=== PATIENT | female | born 2000 | race Caucasian/White ===

== ENCOUNTER 2022-07-10 19:21 | Emergency (ER) | payer OTHER, SELFPAY ==
[2022-07-10 19:32] VITALS: BP 125/94; PULSE 72; RESP 16; TEMP 36.7; O2SAT 100
[2022-07-10 19:38] VITALS: BP 125/94; PULSE 72; RESP 16; TEMP 36.7; O2SAT 100
--- NOTE | 2022-07-10 19:39 | ED.GENADULT ---
HPI - General Adult General Chief complaint: Ear Stated complaint: nerve damage in face Time Seen by Provider: 07/10/22 19:25 Source: patient, RN notes reviewed and old records reviewed Mode of arrival: ambulatory Limitations: no limitations History of Present Illness HPI narrative: 22 year old female accompanied by significant other presents to express care with complaints of some drooping of the left side of her mouth and left eye does not want to blink well. patient reports that she has some discomfort under her left ear at her jawline also. Patient denies any difficulty swallowing, patient states history of fevers sores with patient reporting that she has small suspected lesion at lower left lip. Patient reports that she had to take her contacts out and she has been using lubricating eye drops. Patient also voices some headache discomfort MD complaint: facial drooping left side of face Onset (ago): day(s) (1) Location: face Severity scale (1-10): 4 Treatments prior to arrival: other ( lubricating eyedrops) Related Data Home Medications Medication Instructions Recorded Confirmed levothyroxine 25 mcg tablet 25 mcg PO DAILY 07/10/22 07/10/22 metformin 500 mg tablet 500 mg PO DAILY 07/10/22 07/10/22 sertraline 50 mg tablet 75 mg PO DAILY 07/10/22 07/10/22 Allergies Allergy/AdvReac Type Severity Reaction Status Date / Time No Known Allergies Allergy Verified 07/10/22 19:33 Review of Systems Review of Systems: CONSTITUTIONAL: Denies fever, chills, or sweats. EYES: Denies visual changes, redness, or discharge. reports dryness to left eye and decreased blinking ENT: Denies rhinorrhea, congestion, sore throat, or otalgia. reports increased sound left ear pain under left ear when meets jaw rates pain 4/10 CARDIOVASCULAR: Denies chest pain, palpitations, or edema. RESPIRATORY: Denies cough or dyspnea. GASTROINTESTINAL: Denies abdominal pain, nausea, vomiting, or diarrhea. GENITOURINARY: Denies dysuria or hematuria. SKIN: Denies rash or itching. MUSCULOSKELETAL: Denies back pain, joint pain, or myalgia. NEUROLOGIC: Denies headache, left facial drooping, or weakness. PSYCHIATRIC: reports history of anxiety or depression. All systems reviewed & are unremarkable except as noted in HPI and below [facility] Past Medical History Medical History (Updated 07/10/22 @ 20:14 by Mary Jo Freedman NP) Anxiety and depression Hypothyroid Social History Social History (Updated 07/10/22 @ 20:08 by Mary Jo Freedman NP) Smoking status: Never smoker Alcohol intake: current Alcohol use details: social Substance use type: does not use Gender identity (if verbalized by the patient): Female Comments At time of signature, agree with nursing past medical, surgical, social and family history. There is no relevant family history pertinent to the presenting complaint Exam Narrative: GENERAL: Well-appearing, well-nourished, and in no acute distress. HEAD: Normocephalic, atraumatic. EYES: PERRLA and EOMI. ENT: Nares clear, no rhinorrhea or epistaxis. Mucous membranes moist.TM's normal with good light reflex, throat pink with no lesions or exudate, no trismus or any Chad angina, facial drooping around left side of mouth noted, decreased blinking left eye, patient denies any difficulty with swallowing NECK: Supple.no lymphadenopathy CHEST: Clear to auscultation. No respiratory distress.SAO2 100% on room air HEART: Regular rate and rhythm. No murmur heard. Normal peripheral pulses. ABDOMEN: Soft, nontender, nondistended, normal active bowel sounds. EXTREMITIES: Normal range of motion. No edema. SKIN: Warm, dry, no rash. NEURO: No focal deficits. Alert and oriented x3. Course Course Level of Care: Express Care Visit Vital Signs Vital signs: Vital Signs Temperature 36.7 C 07/10/22 19:32 Pulse Rate 72 07/10/22 19:32 Respiratory Rate 16 07/10/22 19:32 Blood Pressure 125/94 H 07/10/22 19:32 Pulse Oximetry 100
[2022-07-10 19:44] VITALS: BP 122/74
== END 2022-07-10 19:56 | disposition home or self-care (01) ==
PROVIDERS: Emergency Provider Registered Nurse
DX: G51.0 Bell's palsy (principal); E03.9 Hypothyroidism, unspecified; F41.9 Anxiety disorder, unspecified; F32.A Depression, unspecified
CPT/HCPCS: 99213; G0463